=== PATIENT | female | born 1995 | race Asian ===

== ENCOUNTER 2017-07-12 12:46 | Inpatient (IN) | payer OTHER ==
[~2017-07-12] VITALS: Ht 180.3 cm; Wt 98.9 kg
[2017-07-12] MEDS ORDERED: TERBUTALINE 1 MG/ML VIAL SUBQ SCH (13:30)
[2017-07-12] MEDS ORDERED: TERBUTALINE 1 MG/ML VIAL SUBQ ONE (14:23)
[2017-07-12 16:00] VITALS: BP 112/73
[2017-07-12] MEDS ORDERED: LACTATED RINGERS 1,000 ML IV SCH (17:44)
[2017-07-12] MEDS ORDERED: CITRIC ACID/SODIUM CITRATE 30 ML UDC PO SCH (17:52)
[2017-07-12 18:49] LABS: BASOPHILS % (AUTO) 0.4 % (0.0-2.0); EOSINOPHILS # (AUTO) 0.2 K/uL (0-0.4); EOSINOPHILS % (AUTO) 2.6 % (0.0-4.0); HEMATOCRIT 33.3 % (36-48); HEMOGLOBIN 10.9 g/dL (12.0-16.0); LYMPHOCYTES # (AUTO) 1.9 K/uL (2.5-16.5); LYMPHOCYTES % (AUTO) 22.2 % (20.5-51.1); MEAN CORPUSCULAR HEMOGLOBIN 26 pg (27-31); MEAN CORPUSCULAR HGB CONC 33 g/dL (33-37); MEAN CORPUSCULAR VOLUME 79 fL (80-94); MONOCYTES # (AUTO) 0.5 K/uL (0.8-1.0); MONOCYTES % (AUTO) 5.3 % (1.7-9.3); NEUTROPHILS # (AUTO) 6.1 K/uL (1.8-7.7); NEUTROPHILS % (AUTO) 69.5 % (42.2-75.2); PLATELET COUNT (AUTO) 251 K/uL (140-450); RED BLOOD CELL COUNT(AUTO) 4.24 MIL/uL (4.20-5.40); RED CELL DISTRIBUTION WIDTH 14.5 % (11.6-13.7); WHITE BLOOD COUNT (AUTO) 8.7 K/uL (4.8-10.8)
[2017-07-12 18:57] LABS: APPEARANCE,URINE SL CLOUDY (CLEAR); BILIRUBIN,URINE NEGATIVE (NEGATIVE); BLOOD, URINE NEGATIVE (NEGATIVE); COLOR,URINE YELLOW (YELLOW); LEUKOCYTE ESTERASE ,URINE 3+ (NEGATIVE); NITRITE, URINE NEGATIVE (NEGATIVE); UGLUCOSE NEGATIVE (NEGATIVE)
[2017-07-12 19:04] LABS: ALBUMIN 2.2 g/dL (3.4-5.0); ANION GAP 15.2 (8-16); CARBON DIOXIDE 21.1 mmol/L (21-32); CREATININE 0.6 mg/dL (0.6-1.3); POTASSIUM 3.3 mmol/L (3.5-5.1); TOTAL BILIRUBIN 0.4 mg/dL (0.0-1.0)
[2017-07-12 19:11] LABS: RBC,URINE 0-5 (RARE) /HPF (0-5)
[2017-07-12] MEDS ORDERED: OXYTOCIN 10 UNITS/ML VIAL ONE (19:53)
[2017-07-12] MEDS ORDERED: BUPIVACAINE-MPF 0.75% 10 ML VIAL INJ ONE (19:55)
[2017-07-12] MEDS ORDERED: ePHEDrine 50 MG/ML VIAL IV ONE (19:55)
[2017-07-12] MEDS ORDERED: ONDANSETRON 4 MG/2 ML VIAL IVP ONE (19:55)
[2017-07-12] MEDS ORDERED: ceFAZolin 1,000 MG VIAL ONE (19:56)
[2017-07-12] MEDS ORDERED: MIDAZOLAM 2 MG/2 ML VIAL ONE (20:05)
[2017-07-12] MEDS ORDERED: fentaNYL 0.05 MG/ML VIAL ONE (20:05)
[2017-07-12] MEDS ORDERED: KETAMINE 500 MG/5 ML VIAL ONE (20:06)
[2017-07-12] MEDS ORDERED: MORPHINE PRES FREE 10 MG/10 ML AMP IV ONE (20:07)
[2017-07-12] MEDS ORDERED: ceFAZolin 1,000 MG VIAL IVP ONE (20:10)
[2017-07-12] MEDS ORDERED: ONDANSETRON 4 MG/2 ML VIAL ONE (20:39)
[2017-07-12] MEDS ORDERED: diphenhydrAMINE 50 MG/ML VIAL ONE (20:39)
[2017-07-12] MEDS ORDERED: OXYTOCIN 20 UNITS/LR PREMIX 1,000 ML IV ONE (20:39)
[2017-07-12] MEDS ORDERED: ONDANSETRON 4 MG/2 ML VIAL IVP PRN (20:50)
[2017-07-12] MEDS ORDERED: KETOROLAC 30 MG/ML VIAL IVP PRN (20:50)
[2017-07-12] MEDS ORDERED: OXYTOCIN 10 UNITS in LACTATED RINGERS 1,000 ML IV SCH (21:05)
[2017-07-12] MEDS ORDERED: TEMAZEPAM 15 MG CAP PO PRN (21:05)
[2017-07-12] MEDS ORDERED: HYDROcodone/APAP 5/325 MG 1 TAB TAB PO PRN (21:05)
[2017-07-12] MEDS ORDERED: SIMETHICONE 80 MG TAB.CHEW PO PRN (21:05)
[2017-07-12] MEDS ORDERED: oxyCODONE/APAP 5/325 MG 1 TAB TAB PO PRN (21:05)
[2017-07-12] MEDS ORDERED: MEASLES, MUMPS, AND RUBELLA 1 VIAL SQVAC PRN (21:05)
[2017-07-12] MEDS ORDERED: METHYLERGONOVINE 0.2 MG/ML AMP IM PRN (21:05)
[2017-07-12] MEDS: diphenhydrAMINE 50 MG/ML VIAL IVP PRN (21:30)
[2017-07-13] MEDS: diphenhydrAMINE 50 MG/ML VIAL IVP PRN (00:29)
[2017-07-13 08:07] LABS: BASOPHILS # (AUTO) 0.1 K/uL (0.00-0.22); BASOPHILS % (AUTO) 0.5 % (0.0-2.0); EOSINOPHILS # (AUTO) 0.2 K/uL (0-0.4); HEMATOCRIT 30.5 % (36-48); HEMOGLOBIN 9.9 g/dL (12.0-16.0); LYMPHOCYTES # (AUTO) 1.7 K/uL (2.5-16.5); LYMPHOCYTES % (AUTO) 16.6 % (20.5-51.1); MEAN CORPUSCULAR HEMOGLOBIN 26 pg (27-31); MEAN CORPUSCULAR HGB CONC 33 g/dL (33-37); MEAN CORPUSCULAR VOLUME 79 fL (80-94); MONOCYTES # (AUTO) 0.4 K/uL (0.8-1.0); MONOCYTES % (AUTO) 3.5 % (1.7-9.3); NEUTROPHILS # (AUTO) 8.1 K/uL (1.8-7.7); NEUTROPHILS % (AUTO) 77.4 % (42.2-75.2); PLATELET COUNT (AUTO) 246 K/uL (140-450); RED BLOOD CELL COUNT(AUTO) 3.88 MIL/uL (4.20-5.40); RED CELL DISTRIBUTION WIDTH 14.7 % (11.6-13.7); WHITE BLOOD COUNT (AUTO) 10.5 K/uL (4.8-10.8)
[2017-07-13] MEDS ORDERED: SODIUM PHOSPHATE 118 ML ENEM RC SCH (09:00)
[2017-07-13] MEDS ORDERED: IBUPROFEN 800 MG TAB PO PRN (09:05)
[2017-07-13] MEDS ORDERED: OXYTOCIN 20 UNITS/LR PREMIX 1,000 ML IV ONE ×2 (09:10→15:49)
[2017-07-13] MEDS: OXYTOCIN 20 UNITS in LACTATED RINGERS 1,000 ML IV SCH ×2 (09:30→16:00)
--- NOTE | 2017-07-13 10:19 | NUR ---
PATIENT HAS BEEN SCREENED AND CATEGORIZED LOW NUTRITION RISK. PATIENT WILL BE SEEN WITHIN 7 DAYS OF ADMISSION. 07/19/17 CLARISSE SWARTZ MBA, RD
[2017-07-13 12:29] LABS: RAPID PLASMA REAGIN NON-REACTIVE (Non Reactiv)
[2017-07-13] MEDS ORDERED: KETOROLAC 30 MG/ML VIAL IVP SCH (14:15)
[2017-07-13 15:19] LABS: HEPATITIS B SURFACE ANTIGEN Negative (Negative)
[2017-07-13] MEDS ORDERED: DOCUSATE SOD/SENNA 50/8.6 MG 1 TAB PO SCH (21:00)
[2017-07-13] MEDS: HYDROcodone/APAP 5/325 MG 1 TAB TAB PO PRN (22:19)
[2017-07-14] MEDS: HYDROcodone/APAP 5/325 MG 1 TAB TAB PO PRN (08:31)
[2017-07-14] MEDS: oxyCODONE/APAP 5/325 MG 1 TAB TAB PO PRN (17:39)
[2017-07-14] MEDS ORDERED: SODIUM PHOSPHATE 118 ML ENEM RC PRN (18:45)
[2017-07-15] MEDS: oxyCODONE/APAP 5/325 MG 1 TAB TAB PO PRN ×2 (04:12→18:01)
[2017-07-15] MEDS ORDERED: IBUP-1842 PO (11:51)
[2017-07-16] MEDS ORDERED: IBUP-1842 PO (07:50)
[2017-07-16] MEDS ORDERED: FERR-252 PO (07:52)
== END 2017-07-16 11:40 | disposition home or self-care (01) | DRG 540 ==
LOC: MFCC 12:46 → OBSVTOIN 19:41 → MFCC 22:05
PROVIDERS: ADMIT Obstetrics & Gynecology; ATTEND Obstetrics & Gynecology
PROC: 10D00Z1 Extraction of Products of Conception, Low, Open Approach (ICD-10-PCS; principal; 2017-07-12 20:00)
DX: O34.211 Maternal care for low transverse scar from previous cesarean delivery (principal); O99.214 Obesity complicating childbirth; O99.62 Diseases of the digestive system complicating childbirth; Z3A.38 38 weeks gestation of pregnancy; Z37.0 Single live birth; Z68.30 Body mass index [BMI] 30.0-30.9, adult
CPT/HCPCS: G0378 ×7; 36415; 76805; 80053; 81001; 85025; 86592; 86762; 86886; 86900; 86901; 87086; 87340; J0690; J1200; J1885; J2250; J2270; J2405; J2590; J3010; J3105; J3490; J7060; J7120; Q0092